=== PATIENT | female | born 1980 | race Caucasian/White ===

== ENCOUNTER 2016-09-04 09:29 | Emergency (ER) | payer MEDICAID ==
[2016-09-04] MEDS ORDERED: PREDNISONE 20 MG TABLET PO ONE (10:05)
[2016-09-04] MEDS ORDERED: IPRATROPIUM/ALBUTEROL 0.5-2.5 MG/3 ML AMPUL NEB ONE (10:05)
--- NOTE | 2016-09-04 10:08 | ER Document Report ---
ED Medical Screen (RME) - General Stated Complaint: FLU LIKE SYMPTOMS Notes: This 36-year-old female patient comes emergency room complaining of three-day history of chest tightness, weak, shaky, fever to 1035, headache, yellow productive cough. She reports her son was at home recently with similar symptoms and seen emergency room Wilian night. Her son did have a flu shot, she did not have a flu shot. She has never had a history of wheezing or needing inhalers before. She does have some respiratory story for wheezes and rhonchi today. I have greeted and performed a rapid initial assessment of this patient. A comprehensive ED assessment and evaluation of the patient, analysis of test results and completion of the medical decision making process will be conducted by additional ED providers. TRAVEL OUTSIDE OF THE [place] IN LAST 30 DAYS: No - Related Data Allergies/Adverse Reactions: hydrocodone [Hydrocodone] Allergy (Verified 09/04/16 09:38) Sulfa (Sulfonamide Antibiotics) Allergy (Verified 09/04/16 10:28) Past Medical History Renal/ Medical History: Denies: Hx Peritoneal Dialysis Psychiatric Medical History: Reports: Hx Depression - & anxiety Physical Exam - Vital signs Vitals: Temp Pulse Resp BP Pulse Ox 97.9 F 93 20 143/99 H 100 09/04/16 09:38 09/04/16 09:38 09/04/16 09:38 09/04/16 09:38 09/04/16 09:38 Course - Vital Signs Vital signs: Temp Pulse Resp BP Pulse Ox 97.9 F 93 20 143/99 H 100 09/04/16 09:38 09/04/16 09:38 09/04/16 10:27 09/04/16 09:38 09/04/16 09:38 - Laboratory Result Diagrams: 09/04/16 10:18 09/04/16 10:18
[2016-09-04 10:37] LABS: ABSOLUTE LYMPHOCYTES (AUTO) 1.6 10^3/uL (0.5-4.7); ABSOLUTE MONOCYTES (AUTO) 0.7 10^3/uL (0.1-1.4); ABSOLUTE NEUT (AUTO) 6.6 10^3/uL (1.7-8.2); BASOPHILS % (AUTO) 0.1 % (0-2); HEMATOCRIT 41.2 % (36.0-47.0); HEMOGLOBIN 14.1 g/dL (12.0-15.5); HGB HCT DIFFERENCE 1.1; LYMPHOCYTES % (AUTO) 18.3 % (13-45); MEAN CORPUSCULAR HEMOGLOBIN 30.1 pg (27.0-33.4); MEAN CORPUSCULAR HGB CONC 34.2 g/dL (32.0-36.0); MEAN CORPUSCULAR VOLUME 88 fl (80-97); MONOCYTES % (AUTO) 7.6 % (3-13); RED BLOOD COUNT 4.67 10^6/uL (3.72-5.28); RED CELL DISTRIBUTION WIDTH 13.6 % (11.5-14.0); WHITE BLOOD COUNT 8.9 10^3/uL (4.0-10.5)
--- NOTE | 2016-09-04 10:50 | ER Document Report ---
ED Flu Like - General Chief Complaint: Flu Symptoms Stated Complaint: FLU LIKE SYMPTOMS Time seen by provider: 10:48 Mode of Arrival: Ambulatory Information source: Patient TRAVEL OUTSIDE OF THE [place] IN LAST 30 DAYS: No - HPI Patient complains to provider of: fever, chills, headache, productive cough, nausea Onset: Other - 3 days Timing/Duration: Persistent Quality of pain: Achy Severity: Moderate Pain Level: 2 Shortness of breath: Mild Associated symptoms: Body/muscle aches, Chills, Productive cough, Fever, Headache, Nausea, Shortness of breath Similar symptoms previously: No Recently seen / treated by doctor: No Notes: Patient is 36-year-old female who presents to the emergency room for 3 day history of productive cough with yellow phlegm, chest tightness, fever with MAXIMUM TEMPERATURE of 103.5, headache, body aches, nausea, patient reports her 9-year-old son was sick with similar symptoms last week, was told that it was a viral illness, patient denies having a flu shot this season, she is a half a pack per day smoker - Related Data Allergies/Adverse Reactions: hydrocodone [Hydrocodone] Allergy (Verified 09/04/16 09:38) Sulfa (Sulfonamide Antibiotics) Allergy (Verified 09/04/16 10:28) Past Medical History - General Information source: Patient - Social History Smoking Status: Current Every Day Smoker Chew tobacco use (# tins/day): No Frequency of alcohol use: Occasional Drug Abuse: None Family History: Reviewed & Not Pertinent Patient has suicidal ideation: No Patient has homicidal ideation: No Renal/ Medical History: Denies: Hx Peritoneal Dialysis Psychiatric Medical History: Reports: Hx Depression - & anxiety Surgical Hx: Negative - Immunizations Hx Diphtheria, Pertussis, Tetanus Vaccination: No Review of Systems - Review of Systems Constitutional: See HPI EENT: No symptoms reported Cardiovascular: No symptoms reported Respiratory: See HPI Gastrointestinal: Nausea Genitourinary: No symptoms reported Female Genitourinary: No symptoms reported Musculoskeletal: See HPI Skin: No symptoms reported Hematologic/Lymphatic: No symptoms reported Neurological/Psychological: Headaches -: Yes All other systems reviewed and negative Physical Exam - Vital signs Vitals: Temp Pulse Resp BP Pulse Ox 97.9 F 93 20 143/99 H 100 09/04/16 09:38 09/04/16 09:38 09/04/16 09:38 09/04/16 09:38 09/04/16 09:38 Interpretation: Normal - General General appearance: Appears well, Alert - HEENT Head: Normocephalic, Atraumatic Eyes: Normal Pupils: PERRL - Respiratory Respiratory status: No respiratory distress Chest status: Nontender Breath sounds: Normal Chest palpation: Normal - Cardiovascular Rhythm: Regular Heart sounds: Normal auscultation Murmur: No - Abdominal Inspection: Obese Distension: No distension Bowel sounds: Normal Tenderness: Nontender Organomegaly: No organomegaly - Back Back: Normal, Nontender - Extremities General upper extremity: Normal inspection, Nontender, Normal color, Normal ROM , Normal temperature General lower extremity: Normal inspection, Nontender, Normal color, Normal ROM , Normal temperature, Normal weight bearing. No: Priscilla's sign - Neurological Neuro grossly intact: Yes Cognition: Normal Orientation: AAOx4 Autumn Coma Scale Eye Opening: Spontaneous [place] Coma Scale Verbal: Oriented [place]umn Coma Scale Motor: Obeys Commands [place] Coma Scale Total: 15 Speech: Normal Motor strength normal: LUE, RUE, LLE, RLE Sensory: Normal - Psychological Associated symptoms: Normal affect, Normal mood - Skin Skin Temperature: Warm Skin Moisture: Dry Skin Color: Normal Course - Re-evaluation Re-evalutation: 09/04/16 11:53 Patient resting comfortably, lab and imaging findings were discussed with her at bedside which are relatively unremarkable, symptoms are consistent with a viral upper respiratory illness, patient will be provided with a prescription for albuterol inhaler, prednisone, cough suppressant medication and advised to quit smoking, as well as follow-up with her primary care provider in 2-3 days or return if symptoms worsen, patient acknowledges understanding and agreement with this plan - Vital Signs Vital signs: Temp Pulse Resp BP Pulse Ox 97.9 F 93 20 143/99 H 100 09/04/16 09:38 09/04/16 09:38 09/04/16 10:27 09/04/16 09:38 09/04/16 09:38 - Laboratory Result Diagrams: 09/04/16 10:18 09/04/16 10:18 - Diagnostic Test Radiology reviewed: Image reviewed, Reports reviewed Discharge - Discharge Clinical Impression: Viral upper respiratory illness Condition: Stable Disposition: HOME, SELF-CARE Instructions: Upper Respiratory Illness ([facility]), Viral Syndrome ([facility]) Additional Instructions: Follow up with your primary care provider in one to 2 days. Return to the emergency room immediately if symptoms worsen or any additional concerns. Prescriptions: Benzonatate [Tessalon Perle 100 mg Capsule] 100 mg PO Q8HP PRN #40 cap PRN Reason: Albuterol Sulfate [Proair HFA Inhalation Aerosol 8.5 gm MDI] 1 puff IH Q4 PRN # 1 mdi PRN Reason: Prednisone 40 mg PO DAILY #8 tablet Forms: Smoking Cessation Education, Elevated Blood Pressure
[2016-09-04 11:18] LABS: ALANINE AMINOTRANSFERASE 33 U/L (9-52); ALBUMIN 4.2 g/dL (3.5-5.0); ALKALINE PHOSPHATASE 109 U/L (38-126); ANION GAP 13 (5-19); ASPARTATE AMINO TRANSFERASE 23 U/L (14-36); BILIRUBIN,DIRECT 0.2 mg/dL (0.0-0.4); BILIRUBIN,TOTAL 0.6 mg/dL (0.2-1.3); BLOOD UREA NITROGEN 9 mg/dL (7-20); CALCIUM 9.5 mg/dL (8.4-10.2); CARBON DIOXIDE 23 mmol/L (22-30); CHLORIDE 106 mmol/L (98-107); CREATININE RESULT 0.74 mg/dL (0.52-1.25); GLUCOSE 95 mg/dL (75-110); SODIUM 142.4 mmol/L (137-145)
[2016-09-04] MEDS ORDERED: BENZONATATE 100 MG CAPSULE PO ONE (11:55)
[2016-09-04 12:19] VITALS: BP 132/89
== END 2016-09-04 12:20 | disposition home or self-care (01) ==
LOC: ER 09:29
DX: J06.9 Acute upper respiratory infection, unspecified (principal); R50.9 Fever, unspecified; R51 Headache; M79.1 Myalgia; R11.0 Nausea; F17.200 Nicotine dependence, unspecified, uncomplicated; Z88.6 Allergy status to analgesic agent; Z88.2 Allergy status to sulfonamides
CPT/HCPCS: 94640; 99283; 36415; 85025; 80053; 87804; 71020; J3490; J7512; J7620

== ENCOUNTER 2018-01-20 10:52 | Emergency (ER) | payer MEDICAID ==
[2018-01-20 10:57] VITALS: BP 152/114
[2018-01-20] MEDS ORDERED: IPRATROPIUM/ALBUTEROL 0.5-2.5 MG/3 ML AMPUL NEB ONE ×2 (11:25→13:29)
[2018-01-20 11:50] LABS: ABSOLUTE BASOPHILS # (AUTO) 0.1 10^3/uL (0.0-0.2); ABSOLUTE LYMPHOCYTES (AUTO) 2.2 10^3/uL (0.5-4.7); ABSOLUTE MONOCYTES (AUTO) 0.7 10^3/uL (0.1-1.4); BASOPHILS % (AUTO) 0.6 % (0-2); EOSINOPHILS % (AUTO) 0.1 % (0-6); HEMATOCRIT 40.5 % (36.0-47.0); HEMOGLOBIN 13.9 g/dL (12.0-15.5); LYMPHOCYTES % (AUTO) 22.1 % (13-45); MEAN CORPUSCULAR HEMOGLOBIN 30.2 pg (27.0-33.4); MEAN CORPUSCULAR HGB CONC 34.2 g/dL (32.0-36.0); MEAN CORPUSCULAR VOLUME 88 fl (80-97); MONOCYTES % (AUTO) 6.7 % (3-13); PLATELET COUNT 193 10^3/uL (150-450); RED BLOOD COUNT 4.59 10^6/uL (3.72-5.28); RED CELL DISTRIBUTION WIDTH 14.1 % (11.5-14.0); SEGMENTED NEUTROPHILS % (AUTO) 70.5 % (42-78); TOTAL CELLS COUNTED % (AUTO) 100 %; WHITE BLOOD COUNT 9.9 10^3/uL (4.0-10.5)
[2018-01-20 12:07] LABS: ANION GAP 11 (5-19); BLOOD UREA NITROGEN 7 mg/dL (7-20); CALCIUM 8.8 mg/dL (8.4-10.2); CARBON DIOXIDE 22 mmol/L (22-30); CHLORIDE 112 mmol/L (98-107); GLUCOSE 119 mg/dL (75-110); POTASSIUM 3.8 mmol/L (3.6-5.0); SODIUM 144.6 mmol/L (137-145)
--- NOTE | 2018-01-20 12:42 | RADIOLOGY REPORT (SQ) ---
EXAM DESCRIPTION: CHEST 2 VIEWS COMPLETED DATE/TIME: 01/20/2018 12:01 pm REASON FOR STUDY: sob COMPARISON: Two-view chest 09/04/2016 EXAM PARAMETERS: NUMBER OF VIEWS: two views TECHNIQUE: Digital Frontal and Lateral radiographic views of the chest acquired. RADIATION DOSE: NA LIMITATIONS: none FINDINGS: LUNGS AND PLEURA: No opacities, masses or pneumothorax. No pleural effusion. MEDIASTINUM AND HILAR STRUCTURES: No masses or contour abnormalities. HEART AND VASCULAR STRUCTURES: Heart normal size. No evidence for failure. BONES: No acute findings. HARDWARE: None in the chest. OTHER: No other significant finding. IMPRESSION: NO ACUTE RADIOGRAPHIC FINDING IN THE CHEST. TECHNICAL DOCUMENTATION: JOB ID: [id number] [employer]- All Rights Reserved Reading location - IP/workstation name: [email or web address]
[2018-01-20] MEDS ORDERED: ALBUTEROL SULFATE HFA (90 MCG/PUFF) 8 GM MDI (1 MDI/ER DISP) IH ONE (13:24)
[2018-01-20] MEDS ORDERED: AZITHROMYCIN 250 MG TABLET PO ONE (13:24)
--- NOTE | 2018-01-20 13:29 | ER Document Report ---
ED General - General Chief Complaint: Chest Pain Stated Complaint: BLOOD PRESSURE ISSUE Time Seen by Provider: 01/20/18 11:04 TRAVEL OUTSIDE OF THE [place] IN LAST 30 DAYS: No - HPI Patient complains to provider of: Elevated blood pressure sinus drainage chest congestion Notes: Patient coming in for the above-stated symptoms ongoing for greater than 24 hours. Patient states she has been taking some [id number] NyQuil patient is on blood pressure medication lisinopril states she has been compliant with his medication. Patient denies any fevers chills nausea vomiting recent antibiotics patient denies any trauma. Denies any other cardiac pathology other than hypertension. Patient resting comfortably upon my evaluation. - Related Data Allergies/Adverse Reactions: hydrocodone [Hydrocodone] Allergy (Verified 01/20/18 10:52) Sulfa (Sulfonamide Antibiotics) Allergy (Verified 01/20/18 10:52) Past Medical History - Social History Smoking Status: Current Every Day Smoker Family History: Reviewed & Not Pertinent Patient has suicidal ideation: No Patient has homicidal ideation: No Renal/ Medical History: Denies: Hx Peritoneal Dialysis Psychiatric Medical History: Reports: Hx Depression - & anxiety - Immunizations Hx Diphtheria, Pertussis, Tetanus Vaccination: No Review of Systems - Review of Systems Constitutional: No symptoms reported EENT: Sinus discharge Cardiovascular: Other - Chest congestion Respiratory: No symptoms reported Gastrointestinal: No symptoms reported Genitourinary: No symptoms reported Female Genitourinary: No symptoms reported Musculoskeletal: No symptoms reported Skin: No symptoms reported Hematologic/Lymphatic: No symptoms reported Neurological/Psychological: No symptoms reported Physical Exam - Vital signs Vitals: Temp Pulse Resp BP Pulse Ox 97.6 F 85 16 152/114 H 100 01/20/18 10:56 01/20/18 10:56 01/20/18 10:56 01/20/18 10:56 01/20/18 10:56 Interpretation: Normal - General General appearance: Appears well, Alert - HEENT Head: Normocephalic, Atraumatic Eyes: Normal Conjunctiva: Normal Cornea: Normal Pupils: PERRL Fundascopic: Normal Ears: Normal External canal: Normal Tympanic membrane: Normal Sinus: Frontal Nasal: Normal Mouth/Lips: Normal Pharynx: Post nasal drainage Neck: Normal - Respiratory Respiratory status: No respiratory distress Chest status: Nontender Breath sounds: Wheezing Chest palpation: Normal - Cardiovascular Rhythm: Regular Heart sounds: Normal auscultation Murmur: No - Abdominal Inspection: Normal Distension: No distension Bowel sounds: Normal Tenderness: Nontender Organomegaly: No organomegaly - Back Back: Normal, Nontender - Extremities General upper extremity: Normal inspection, Nontender, Normal color, Normal ROM , Normal temperature General lower extremity: Normal inspection, Nontender, Normal color, Normal ROM , Normal temperature, Normal weight bearing. No: Priscilla's sign - Neurological Neuro grossly intact: Yes Cognition: Normal Orientation: AAOx4 Autumn Coma Scale Eye Opening: Spontaneous [place] Coma Scale Verbal: Oriented [place] Coma Scale Motor: Obeys Commands [place] Coma Scale Total: 15 Speech: Normal Motor strength normal: LUE, RUE, LLE, RLE Sensory: Normal - Psychological Associated symptoms: Normal affect, Normal mood - Skin Skin Temperature: Warm Skin Moisture: Dry Skin Color: Normal Course - Re-evaluation Re-evalutation: 01/20/18 20:10 Symptoms consistent with the beginning of upper respiratory tract infection versus sinusitis. As the symptoms ongoing for approximately 5 days we will start the patient on azithromycin for her symptoms. Laboratory studies not show any critical pathology patient was given a breathing treatment here and discharged home with a hand-held inhaler. Patient agrees to plan - Vital Signs Vital signs: Temp Pulse Resp BP Pulse Ox 97.6 F 85 16 152/114 H 100 01/20/18 10:56 01/20/18 10:56 01/20/18 10:56 01/20/18 10:56 01/20/18 10:56 - Laboratory Result Diagrams: 01/20/18 11:35 01/20/18 11:35 Laboratory results interpreted by me: 01/20/18 01/20/18 11:35 11:35 RDW 14.1 H Chloride 112 H Glucose 119 H Discharge - Discharge Clinical Impression: Chest congestion Hypertension Qualifiers: Hypertension type: unspecified Qualified Code(s): I10 - Essential (primary) hypertension URI (upper respiratory infection) Qualifiers: URI type: unspecified URI Qualified Code(s): J06.9 - Acute upper respiratory infection, unspecified Condition: Good Disposition: HOME, SELF-CARE Instructions: Chest Wall Pain ([facility]), Chest Pain of Unclear Cause ([facility]), Upper Respiratory Illness ([facility]) Additional Instructions: Laboratory studies did not show any signs of cardiac damage your chest x-ray shows no signs of pneumonia and he believes the symptoms of congestion cough sinus drainage or due to upper respiratory tract infection or a sinusitis. We will give the treat this etiology with azithromycin. Please make sure that you follow-up with your primary care physician. Please use the inhaler that we gave you here in ER 2 puffs every 4 hours as needed for shortness of breath. Continue with your blood pressure medication. Please be aware that over-the- counter cough cold medications can cause her blood pressure to rise. Coricidin HBP is a [id number] medication she can use for sinus symptoms although not affect her blood pressure as much. Please be sure he follow-up with your primary care physician return to ER symptoms worsen. Prescriptions: Ibuprofen [Motrin 600 mg Tablet] 600 mg PO Q8HP PRN #21 tablet PRN Reason: Azithromycin [Zithromax] 250 mg PO DAILY #4 tablet Forms: Elevated Blood Pressure, Return to Work
--- NOTE | 2018-01-20 14:59 | EKG REPORT ---
SEVERITY:- NORMAL ECG - SINUS RHYTHM : Confirmed by: Faheem Eugene MD 20-Jan-2018 14:58:46
== END 2018-01-20 13:45 | disposition home or self-care (01) ==
LOC: ER 10:52
DX: J06.9 Acute upper respiratory infection, unspecified (principal); I10 Essential (primary) hypertension; Z79.899 Other long term (current) drug therapy; R09.89 Other specified symptoms and signs involving the circulatory and respiratory systems; J34.89 Other specified disorders of nose and nasal sinuses; R09.82 Postnasal drip; R06.2 Wheezing; F17.200 Nicotine dependence, unspecified, uncomplicated; Z88.5 Allergy status to narcotic agent; Z88.2 Allergy status to sulfonamides
CPT/HCPCS: 93005; 94640; 99285; 36415; 85025; 80048; 84484; 71046; 93010; Q0144; J3490; J7620

== ENCOUNTER → 2020-05-20 | Outpatient (CLI) | payer MEDICAID ==
--- NOTE | 2020-05-20 13:11 | RADIOLOGY REPORT (SQ) ---
EXAM DESCRIPTION: CHEST 2 VIEWS IMAGES COMPLETED DATE/TIME: 05/20/2020 10:57 am REASON FOR STUDY: (R07.89)OTHER CHEST PAIN COMPARISON: 01/20/2018 EXAM PARAMETERS: NUMBER OF VIEWS: two views TECHNIQUE: Digital Frontal and Lateral radiographic views of the chest acquired. RADIATION DOSE: NA LIMITATIONS: none FINDINGS: LUNGS AND PLEURA: No opacities, masses or pneumothorax. No pleural effusion. MEDIASTINUM AND HILAR STRUCTURES: No masses or contour abnormalities. HEART AND VASCULAR STRUCTURES: Heart normal size. No evidence for failure. BONES: No acute findings. HARDWARE: None in the chest. OTHER: No other significant finding. IMPRESSION: NO ACUTE RADIOGRAPHIC FINDING IN THE CHEST. TECHNICAL DOCUMENTATION: JOB ID: [id number] 2010 [employer]- All Rights Reserved Reading location - IP/workstation name: [email or web address]
== END ==
LOC: RAD 10:30
PROVIDERS: ATTEND Physician Assistant
DX: R07.89 Other chest pain (principal)
CPT/HCPCS: 71046